=== PATIENT | male | born 1945 | race Caucasian/White ===

== ENCOUNTER 2022-01-27 10:56 | Outpatient (REF) | payer OTHER, SELFPAY ==
[2022-01-27 12:21] LABS: HCT 32.2 % (40.0-50.0); HGB 10.7 g/dL (13.5-17.5); MCH 29.6 pg (27.0-33.0); MCHC 33.2 % (32.0-36.0); MCV 89 fL (80-95); MPV 9.7 fL (8.0-11.0); Platelet Count 539 10^3/uL (130-400); RBC 3.61 10^6/uL (4.36-5.78); RDW 14.4 % (11.8-14.1); RDW-SD 44.3 fL; WBC 15.38 10^3/uL (4.4-10.8)
[2022-01-27 12:29] LABS: ALT 45 U/L (16-63); AST 17 U/L (15-37); Albumin 3.3 g/dL (3.4-5.0); Alkaline Phosphatase 569 U/L (46-116); Anion Gap 8.8 mmol/L (3-11); BUN 18 mg/dL (7-18); Bilirubin, Total 0.3 mg/dL (0.2-1.0); CO2 31.2 mmol/L (21.0-32.0); CREATININE 1.1 mg/dL (0.70-1.30); Calcium 8.8 mg/dL (8.5-10.1); Chloride 99 mmol/L (98-107); Glucose 118 mg/dL (74-106); Potassium 3.4 mmol/L (3.5-5.1); Sodium 139 mmol/L (136-145); Total Protein 6.3 g/dL (6.4-8.2)
[2022-01-27 12:36] LABS: Absolute Monocyte Count 2.31 10^3/uL (0.1-0.8); Bands % 2; Diff Comment Manual Differential; Metamyelocytes % 3; Myelocytes % 2; RBC Morphology Normal
[2022-01-27 13:29] LABS: Magnesium 1.8 mg/dL (1.8-2.4)
== END 2022-01-27 10:57 | disposition home or self-care (01) ==
LOC: LBN 10:56
PROVIDERS: PCP Family Medicine; Visit Provider Internal Medicine
DX: C79.10 Secondary malignant neoplasm of unspecified urinary organs (principal); C67.9 Malignant neoplasm of bladder, unspecified
CPT/HCPCS: 80053; 83735; 85025

== ENCOUNTER 2022-02-23 00:36 | Outpatient (RCR) | payer OTHER, SELFPAY ==
[2022-02-16 10:23] LABS: HGB 9.8 g/dL (13.5-17.5); MCH 29.9 pg (27.0-33.0); MCHC 32.7 % (32.0-36.0); MCV 92 fL (80-95); MPV 9.7 fL (8.0-11.0); RBC 3.28 10^6/uL (4.36-5.78); RDW 18.4 % (11.8-14.1)
[2022-02-16 10:39] LABS: ALT 34 U/L (16-63); AST 22 U/L (15-37); Albumin 3.4 g/dL (3.4-5.0); Alkaline Phosphatase 389 U/L (46-116); Anion Gap 9.9 mmol/L (3-11); BUN 15 mg/dL (7-18); Bilirubin, Total 0.3 mg/dL (0.2-1.0); CO2 29.1 mmol/L (21.0-32.0); CREATININE 1.2 mg/dL (0.70-1.30); Chloride 100 mmol/L (98-107); Estimated GFR 58.86 (mL/min/1.73m2); Glucose 118 mg/dL (74-106); Potassium 3.4 mmol/L (3.5-5.1); Sodium 139 mmol/L (136-145); Total Protein 6.5 g/dL (6.4-8.2)
[2022-02-16] MEDS: Normal Saline Flush 10 ML SYR IVP (10:41)
[2022-02-16 10:58] LABS: WBC 25.09 10^3/uL (4.4-10.8)
[2022-02-16 11:04] LABS: Absolute Lymphocyte Count 4.27 10^3/uL (1.2-3.4); Absolute Monocyte Count 1.51 10^3/uL (0.1-0.8); Absolute Neutrophil Count 18.32 10^3/uL (1.2-6.7); Bands % 13; Diff Comment Manual Differential
[2022-02-16 11:05] LABS: Anisocytosis 1+; Metamyelocytes % 3; Myelocytes % 1; Platelet Count 427 10^3/uL (130-400); Polychromasia Present
[2022-02-23] MEDS: Normal Saline Flush 10 ML SYR IVP (09:53)
[2022-02-23 10:03] LABS: Abs Immature Grans 0.05 10^3/uL (0.0-0.06); Absolute Basophil Count 0.04 10^3/uL (0.0-0.2); Absolute Eosinophil Count 0.01 10^3/uL (0.0-0.7); Absolute Lymphocyte Count 0.94 10^3/uL (1.2-3.4); Absolute Monocyte Count 0.26 10^3/uL (0.1-0.8); Absolute Neutrophil Count 3.73 10^3/uL (1.2-6.7); Basophils % 0.8; Eosinophils % 0.2; HCT 27.5 % (40.0-50.0); HGB 9.1 g/dL (13.5-17.5); Lymphocytes % 18.7; MCH 30.2 pg (27.0-33.0); MCHC 33.1 % (32.0-36.0); MCV 91 fL (80-95); MPV 8.9 fL (8.0-11.0); Monocytes % 5.2; Neutrophils % 74.1; Platelet Count 307 10^3/uL (130-400); RBC 3.01 10^6/uL (4.36-5.78); RDW-SD 53.2 fL; WBC 5.03 10^3/uL (4.4-10.8)
[2022-02-23 10:36] LABS: ALT 93 U/L (16-63); AST 40 U/L (15-37); Albumin 3.5 g/dL (3.4-5.0); Alkaline Phosphatase 290 U/L (46-116); Anion Gap 7.7 mmol/L (3-11); BUN 17 mg/dL (7-18); Bilirubin, Total 0.4 mg/dL (0.2-1.0); CO2 29.3 mmol/L (21.0-32.0); CREATININE 0.9 mg/dL (0.70-1.30); Calcium 8.6 mg/dL (8.5-10.1); Chloride 98 mmol/L (98-107); Glucose 112 mg/dL (74-106); Potassium 3.5 mmol/L (3.5-5.1); Sodium 135 mmol/L (136-145); Total Protein 6.6 g/dL (6.4-8.2)
== END 2022-03-04 23:59 | disposition home or self-care (01) ==
LOC: INF 00:36
PROVIDERS: PCP Family Medicine; Visit Provider Internal Medicine
DX: C79.10 Secondary malignant neoplasm of unspecified urinary organs (principal); Z45.2 Encounter for adjustment and management of vascular access device
CPT/HCPCS: 36591; 80053; 85025

== ENCOUNTER 2022-03-30 03:13 | Outpatient (RCR) | payer OTHER, SELFPAY ==
[2022-03-09] MEDS: Normal Saline Flush 10 ML SYR IVP (12:19)
[2022-03-09 12:31] LABS: Abs Immature Grans 5.62 10^3/uL (0.0-0.06); HCT 30.4 % (40.0-50.0); HGB 9.5 g/dL (13.5-17.5); MCH 30.4 pg (27.0-33.0); MCHC 31.3 % (32.0-36.0); MCV 97 fL (80-95); MPV 9.7 fL (8.0-11.0); Platelet Count 346 10^3/uL (130-400); RBC 3.12 10^6/uL (4.36-5.78); RDW 22.5 % (11.8-14.1)
[2022-03-09 12:41] LABS: WBC 26.53 10^3/uL (4.4-10.8)
[2022-03-09 12:51] LABS: ALT 23 U/L (16-63); AST 16 U/L (15-37); Albumin 3.2 g/dL (3.4-5.0); Alkaline Phosphatase 262 U/L (46-116); Anion Gap 9.2 mmol/L (3-11); BUN 15 mg/dL (7-18); Bilirubin, Total 0.3 mg/dL (0.2-1.0); CO2 25.8 mmol/L (21.0-32.0); CREATININE 1.1 mg/dL (0.70-1.30); Calcium 8.5 mg/dL (8.5-10.1); Chloride 106 mmol/L (98-107); Glucose 102 mg/dL (74-106); Potassium 3.8 mmol/L (3.5-5.1); Sodium 141 mmol/L (136-145); Total Protein 6.3 g/dL (6.4-8.2)
[2022-03-09 12:58] LABS: Absolute Eosinophil Count 1.06 10^3/uL (0.0-0.7); Absolute Lymphocyte Count 2.12 10^3/uL (1.2-3.4); Absolute Monocyte Count 3.45 10^3/uL (0.1-0.8); Absolute Neutrophil Count 18.04 10^3/uL (1.2-6.7); Bands % 8
[2022-03-09 12:59] LABS: Absolute Basophil Count 0.53 10^3/uL (0.0-0.2); Diff Comment Manual Differential; Metamyelocytes % 3; Myelocytes % 2
[2022-03-09 13:00] LABS: Anisocytosis 3+; Polychromasia Present
[2022-03-09 13:01] LABS: Poikilocytes 2+
[2022-03-16] MEDS: Normal Saline Flush 10 ML SYR IVP (12:10)
[2022-03-16 12:25] LABS: Absolute Basophil Count 0.05 10^3/uL (0.0-0.2); Absolute Eosinophil Count 0.01 10^3/uL (0.0-0.7); Absolute Lymphocyte Count 0.97 10^3/uL (1.2-3.4); Absolute Monocyte Count 0.32 10^3/uL (0.1-0.8); Absolute Neutrophil Count 4.02 10^3/uL (1.2-6.7); Basophils % 0.9; Eosinophils % 0.2; HCT 28.7 % (40.0-50.0); HGB 9.2 g/dL (13.5-17.5); Immature Grans % 1.8; Lymphocytes % 17.7; MCH 30.7 pg (27.0-33.0); MCHC 32.1 % (32.0-36.0); MCV 96 fL (80-95); MPV 8.8 fL (8.0-11.0); Monocytes % 5.9; Neutrophils % 73.5; Platelet Count 299 10^3/uL (130-400); RDW 20.2 % (11.8-14.1); RDW-SD 68.5 fL; WBC 5.47 10^3/uL (4.4-10.8)
[2022-03-16 12:48] LABS: ALT 47 U/L (16-63); AST 23 U/L (15-37); Albumin 3.5 g/dL (3.4-5.0); Alkaline Phosphatase 273 U/L (46-116); Anion Gap 8.8 mmol/L (3-11); BUN 20 mg/dL (7-18); Bilirubin, Total 0.4 mg/dL (0.2-1.0); CO2 27.2 mmol/L (21.0-32.0); CREATININE 1.1 mg/dL (0.70-1.30); Calcium 8.7 mg/dL (8.5-10.1); Chloride 102 mmol/L (98-107); Glucose 120 mg/dL (74-106); Potassium 4.2 mmol/L (3.5-5.1); Sodium 138 mmol/L (136-145); Total Protein 6.7 g/dL (6.4-8.2)
[2022-03-30] MEDS: Normal Saline Flush 10 ML SYR IVP (08:13)
[2022-03-30 08:28] LABS: Absolute Monocyte Count 2.43 10^3/uL (0.1-0.8); HCT 28.4 % (40.0-50.0); HGB 8.8 g/dL (13.5-17.5); MCH 31.4 pg (27.0-33.0); MCV 101 fL (80-95); MPV 9.8 fL (8.0-11.0); Platelet Count 279 10^3/uL (130-400); RDW 24.5 % (11.8-14.1); RDW-SD 87.4 fL; WBC 24.29 10^3/uL (4.4-10.8)
[2022-03-30 08:44] LABS: ALT 24 U/L (16-63); AST 15 U/L (15-37); Albumin 3.4 g/dL (3.4-5.0); Alkaline Phosphatase 308 U/L (46-116); Anion Gap 7.6 mmol/L (3-11); BUN 15 mg/dL (7-18); Bilirubin, Total 0.4 mg/dL (0.2-1.0); CO2 27.4 mmol/L (21.0-32.0); CREATININE 1.2 mg/dL (0.70-1.30); Calcium 8.6 mg/dL (8.5-10.1); Chloride 104 mmol/L (98-107); Estimated GFR 58.86 (mL/min/1.73m2); Glucose 137 mg/dL (74-106); Potassium 3.7 mmol/L (3.5-5.1); Sodium 139 mmol/L (136-145); Total Protein 6.8 g/dL (6.4-8.2)
[2022-03-30 08:53] LABS: Absolute Lymphocyte Count 1.46 10^3/uL (1.2-3.4); Absolute Neutrophil Count 16.76 10^3/uL (1.2-6.7); Bands % 5
[2022-03-30 08:54] LABS: Absolute Basophil Count 0.49 10^3/uL (0.0-0.2); Absolute Eosinophil Count 0.97 10^3/uL (0.0-0.7); Anisocytosis 3+; Diff Comment Manual Differential; Hypochromasia 2+; Metamyelocytes % 6; Myelocytes % 3; Polychromasia Present
== END 2022-04-04 23:59 | disposition home or self-care (01) ==
LOC: INF 03:13
PROVIDERS: PCP Family Medicine; Visit Provider Internal Medicine
DX: C79.10 Secondary malignant neoplasm of unspecified urinary organs (principal); Z45.2 Encounter for adjustment and management of vascular access device
CPT/HCPCS: 36591; 80053; 85025

== ENCOUNTER 2022-04-27 02:34 | Outpatient (RCR) | payer OTHER, SELFPAY ==
[2022-04-06] MEDS: Normal Saline Flush 10 ML SYR IVP (09:08)
[2022-04-06 09:17] LABS: Abs Immature Grans 0.09 10^3/uL (0.0-0.06); Absolute Basophil Count 0.04 10^3/uL (0.0-0.2); Absolute Eosinophil Count 0.02 10^3/uL (0.0-0.7); Absolute Lymphocyte Count 0.89 10^3/uL (1.2-3.4); Absolute Monocyte Count 0.23 10^3/uL (0.1-0.8); Absolute Neutrophil Count 3.33 10^3/uL (1.2-6.7); Basophils % 0.9; Eosinophils % 0.4; HGB 8.4 g/dL (13.5-17.5); Lymphocytes % 19.3; MCHC 31.1 % (32.0-36.0); MCV 100 fL (80-95); MPV 8.7 fL (8.0-11.0); Neutrophils % 72.4; Nucleated RBC 0.4 % (0.0-0.3); Platelet Count 245 10^3/uL (130-400); RBC 2.71 10^6/uL (4.36-5.78); RDW 21.3 % (11.8-14.1); RDW-SD 77.3 fL
[2022-04-06 09:32] LABS: ALT 42 U/L (16-63); AST 22 U/L (15-37); Albumin 3.4 g/dL (3.4-5.0); Alkaline Phosphatase 306 U/L (46-116); Anion Gap 5.3 mmol/L (3-11); BUN 15 mg/dL (7-18); Bilirubin, Total 0.4 mg/dL (0.2-1.0); CO2 27.7 mmol/L (21.0-32.0); CREATININE 1.2 mg/dL (0.70-1.30); Calcium 8.3 mg/dL (8.5-10.1); Chloride 100 mmol/L (98-107); Estimated GFR 58.86 (mL/min/1.73m2); Glucose 125 mg/dL (74-106); Potassium 4.2 mmol/L (3.5-5.1); Sodium 133 mmol/L (136-145); Total Protein 6.6 g/dL (6.4-8.2)
[2022-04-06 09:41] LABS: Anisocytosis 1+; Polychromasia Present
[2022-04-20] MEDS: Normal Saline Flush 10 ML SYR IVP (09:44)
[2022-04-20 09:54] LABS: Abs Immature Grans 3.43 10^3/uL (0.0-0.06); HCT 26.7 % (40.0-50.0); HGB 8.2 g/dL (13.5-17.5); MCH 32.3 pg (27.0-33.0); MCHC 30.7 % (32.0-36.0); MCV 105 fL (80-95); MPV 9.6 fL (8.0-11.0); Platelet Count 289 10^3/uL (130-400); RBC 2.54 10^6/uL (4.36-5.78); RDW 22.7 % (11.8-14.1); RDW-SD 86.2 fL; WBC 19.52 10^3/uL (4.4-10.8)
[2022-04-20 10:10] LABS: ALT 24 U/L (16-63); AST 20 U/L (15-37); Albumin 3.5 g/dL (3.4-5.0); Alkaline Phosphatase 302 U/L (46-116); BUN 17 mg/dL (7-18); Bilirubin, Total 0.4 mg/dL (0.2-1.0); CREATININE 1.1 mg/dL (0.70-1.30); Calcium 8.3 mg/dL (8.5-10.1); Chloride 106 mmol/L (98-107); Glucose 110 mg/dL (74-106); Sodium 142 mmol/L (136-145); Total Protein 6.9 g/dL (6.4-8.2)
[2022-04-20 10:15] LABS: Absolute Eosinophil Count 0.98 10^3/uL (0.0-0.7); Absolute Lymphocyte Count 1.95 10^3/uL (1.2-3.4); Absolute Monocyte Count 2.34 10^3/uL (0.1-0.8); Absolute Neutrophil Count 12.88 10^3/uL (1.2-6.7); Bands % 5
[2022-04-20 10:16] LABS: Metamyelocytes % 3
[2022-04-20 10:17] LABS: Anisocytosis 3+; Basophilic Stippling Present; Diff Comment Manual Differential; Hypochromasia 2+; Macrocytosis 2+; Myelocytes % 3; Polychromasia Present
[2022-04-20 10:18] LABS: Poikilocytes 2+
[2022-04-27] MEDS: Normal Saline Flush 10 ML SYR IVP (10:15)
[2022-04-27 10:28] LABS: Abs Immature Grans 0.26 10^3/uL (0.0-0.06); Absolute Basophil Count 0.05 10^3/uL (0.0-0.2); Absolute Eosinophil Count 0.04 10^3/uL (0.0-0.7); Absolute Lymphocyte Count 0.85 10^3/uL (1.2-3.4); Absolute Monocyte Count 0.42 10^3/uL (0.1-0.8); Absolute Neutrophil Count 3.73 10^3/uL (1.2-6.7); Basophils % 0.9; Eosinophils % 0.7; HCT 26.6 % (40.0-50.0); HGB 8.3 g/dL (13.5-17.5); Immature Grans % 4.9; Lymphocytes % 15.9; MCH 31.8 pg (27.0-33.0); MCHC 31.2 % (32.0-36.0); MCV 102 fL (80-95); MPV 8.8 fL (8.0-11.0); Monocytes % 7.9; Neutrophils % 69.7; Nucleated RBC 0.9 % (0.0-0.3); Platelet Count 236 10^3/uL (130-400); RBC 2.61 10^6/uL (4.36-5.78); RDW 19.1 % (11.8-14.1); RDW-SD 71.1 fL; WBC 5.35 10^3/uL (4.4-10.8)
[2022-04-27 10:43] LABS: ALT 34 U/L (16-63); AST 19 U/L (15-37); Albumin 3.5 g/dL (3.4-5.0); Alkaline Phosphatase 329 U/L (46-116); Anion Gap 8.2 mmol/L (3-11); BUN 16 mg/dL (7-18); Bilirubin, Total 0.4 mg/dL (0.2-1.0); CO2 25.8 mmol/L (21.0-32.0); CREATININE 1.1 mg/dL (0.70-1.30); Calcium 8.5 mg/dL (8.5-10.1); Chloride 104 mmol/L (98-107); Glucose 108 mg/dL (74-106); Magnesium 1.6 mg/dL (1.8-2.4); Potassium 4.4 mmol/L (3.5-5.1); Sodium 138 mmol/L (136-145); Total Protein 6.8 g/dL (6.4-8.2)
== END 2022-05-05 23:59 | disposition home or self-care (01) ==
LOC: INF 02:34
PROVIDERS: PCP Family Medicine; Visit Provider Internal Medicine
DX: C79.10 Secondary malignant neoplasm of unspecified urinary organs (principal); C67.9 Malignant neoplasm of bladder, unspecified; Z45.2 Encounter for adjustment and management of vascular access device
CPT/HCPCS: 36591; 80053; 86850; 86900; 86901; 83735; 85025

== ENCOUNTER 2022-05-11 01:53 | Outpatient (RCR) | payer OTHER, SELFPAY ==
[2022-05-11] MEDS: Normal Saline Flush 10 ML SYR IVP (08:26)
[2022-05-11 08:32] LABS: HCT 29.2 % (40.0-50.0); MCH 32.3 pg (27.0-33.0); MCHC 30.8 % (32.0-36.0); MCV 105 fL (80-95); MPV 9.8 fL (8.0-11.0); Platelet Count 240 10^3/uL (130-400); RBC 2.79 10^6/uL (4.36-5.78); RDW 19.7 % (11.8-14.1); RDW-SD 74.5 fL
[2022-05-11 08:45] LABS: ALT 21 U/L (16-63); AST 20 U/L (15-37); Albumin 3.5 g/dL (3.4-5.0); Alkaline Phosphatase 424 U/L (46-116); Anion Gap 9.9 mmol/L (3-11); BUN 16 mg/dL (7-18); Bilirubin, Total 0.5 mg/dL (0.2-1.0); CO2 27.1 mmol/L (21.0-32.0); CREATININE 1.2 mg/dL (0.70-1.30); Calcium 8.8 mg/dL (8.5-10.1); Chloride 103 mmol/L (98-107); Estimated GFR 62.67 (mL/min/1.73m2); Glucose 130 mg/dL (74-106); Sodium 140 mmol/L (136-145); Total Protein 7.1 g/dL (6.4-8.2)
[2022-05-11 08:59] LABS: WBC 27.61 10^3/uL (4.4-10.8)
[2022-05-11 09:00] LABS: Absolute Lymphocyte Count 2.21 10^3/uL (1.2-3.4); Absolute Monocyte Count 2.21 10^3/uL (0.1-0.8); Absolute Neutrophil Count 20.16 10^3/uL (1.2-6.7); Bands % 13; Metamyelocytes % 5; Myelocytes % 4; Promyelocytes % 2
[2022-05-11 09:01] LABS: Diff Comment Manual Differential; Polychromasia Present
[2022-05-11 10:26] LABS: FREE T4 1.15 ng/dL (0.76-1.46); TSH 1.02 uIU/mL (0.36-3.74)
== END 2022-06-04 23:59 | disposition home or self-care (01) ==
LOC: INF 01:53
PROVIDERS: Nurse Practitioner Family; PCP Family Medicine; Visit Provider Internal Medicine
DX: C67.9 Malignant neoplasm of bladder, unspecified (principal); R94.6 Abnormal results of thyroid function studies; Z45.2 Encounter for adjustment and management of vascular access device
CPT/HCPCS: 36591; 80053; 84439; 84443; 85025

== ENCOUNTER 2022-06-29 02:14 | Outpatient (RCR) | payer OTHER, SELFPAY ==
[2022-06-08] MEDS: Normal Saline Flush 10 ML SYR IVP (09:13)
[2022-06-08 09:36] LABS: Abs Immature Grans 0.91 10^3/uL (0.0-0.06); HCT 30.2 % (40.0-50.0); HGB 9.4 g/dL (13.5-17.5); MCH 29.6 pg (27.0-33.0); MCHC 31.1 % (32.0-36.0); MCV 95 fL (80-95); MPV 9.5 fL (8.0-11.0); Platelet Count 151 10^3/uL (130-400); RBC 3.18 10^6/uL (4.36-5.78); RDW 17.6 % (11.8-14.1); RDW-SD 60.4 fL; WBC 7.46 10^3/uL (4.4-10.8)
[2022-06-08 10:01] LABS: Absolute Basophil Count 0.07 10^3/uL (0.0-0.2); Absolute Eosinophil Count 0.07 10^3/uL (0.0-0.7); Absolute Lymphocyte Count 1.87 10^3/uL (1.2-3.4); Absolute Monocyte Count 0.22 10^3/uL (0.1-0.8); Atypical Lymphocytes % 2; Bands % 0; Diff Comment Manual Differential; Metamyelocytes % 3; Myelocytes % 4; RBC Morphology Normal
[2022-06-08 10:03] LABS: ALT 15 U/L (16-63); AST 13 U/L (15-37); Albumin 3.2 g/dL (3.4-5.0); Alkaline Phosphatase 531 U/L (46-116); Anion Gap 8.6 mmol/L (3-11); BUN 15 mg/dL (7-18); Bilirubin, Total 0.4 mg/dL (0.2-1.0); CO2 26.4 mmol/L (21.0-32.0); CREATININE 1.1 mg/dL (0.70-1.30); Calcium 8.8 mg/dL (8.5-10.1); Chloride 101 mmol/L (98-107); Estimated GFR 69.57 (mL/min/1.73m2); FREE T4 1.05 ng/dL (0.76-1.46); Glucose 146 mg/dL (74-106); Potassium 3.8 mmol/L (3.5-5.1); Sodium 136 mmol/L (136-145); TSH 2.03 uIU/mL (0.36-3.74); Total Protein 6.9 g/dL (6.4-8.2)
[2022-06-29] MEDS: Normal Saline Flush 10 ML SYR IVP (08:31)
[2022-06-29 08:33] LABS: HCT 30.7 % (40.0-50.0); HGB 9.6 g/dL (13.5-17.5); MCHC 31.3 % (32.0-36.0); MCV 93 fL (80-95); Platelet Count 135 10^3/uL (130-400); RBC 3.31 10^6/uL (4.36-5.78); RDW 18.1 % (11.8-14.1); RDW-SD 61.6 fL; WBC 7.14 10^3/uL (4.4-10.8)
[2022-06-29 08:56] LABS: Absolute Eosinophil Count 0.07 10^3/uL (0.0-0.7); Absolute Lymphocyte Count 1.14 10^3/uL (1.2-3.4); Absolute Monocyte Count 0.64 10^3/uL (0.1-0.8); Absolute Neutrophil Count 4.86 10^3/uL (1.2-6.7); Bands % 6
[2022-06-29 08:57] LABS: Anisocytosis 1+; Diff Comment Manual Differential; Metamyelocytes % 3; Myelocytes % 3; Polychromasia Present
[2022-06-29 08:59] LABS: ALT 14 U/L (16-63); AST 11 U/L (15-37); Albumin 3.1 g/dL (3.4-5.0); Alkaline Phosphatase 708 U/L (46-116); Anion Gap 9.7 mmol/L (3-11); BUN 17 mg/dL (7-18); Bilirubin, Total 0.4 mg/dL (0.2-1.0); CO2 26.3 mmol/L (21.0-32.0); CREATININE 1.1 mg/dL (0.70-1.30); Calcium 8.4 mg/dL (8.5-10.1); Chloride 101 mmol/L (98-107); Estimated GFR 69.57 (mL/min/1.73m2); FREE T4 1.16 ng/dL (0.76-1.46); Glucose 134 mg/dL (74-106); Magnesium 1.6 mg/dL (1.8-2.4); Potassium 3.9 mmol/L (3.5-5.1); Sodium 137 mmol/L (136-145); TSH 2.91 uIU/mL (0.36-3.74); Total Protein 6.3 g/dL (6.4-8.2)
== END 2022-07-05 23:59 | disposition home or self-care (01) ==
LOC: INF 02:14
PROVIDERS: PCP Family Medicine; Visit Provider Internal Medicine
DX: R94.6 Abnormal results of thyroid function studies (principal); Z45.2 Encounter for adjustment and management of vascular access device
CPT/HCPCS: 36591; 80053; 83735; 84439; 84443; 85025

== ENCOUNTER 2022-08-03 03:24 | Outpatient (RCR) | payer OTHER, SELFPAY ==
[2022-07-06] MEDS: Normal Saline Flush 10 ML SYR IVP (09:14)
[2022-07-06 09:26] LABS: Abs Immature Grans 0.07 10^3/uL (0.0-0.06); Absolute Basophil Count 0.01 10^3/uL (0.0-0.2); Absolute Lymphocyte Count 0.45 10^3/uL (1.2-3.4); Absolute Monocyte Count 0.11 10^3/uL (0.1-0.8); Absolute Neutrophil Count 1.75 10^3/uL (1.2-6.7); Basophils % 0.4; HCT 28.2 % (40.0-50.0); HGB 8.9 g/dL (13.5-17.5); Immature Grans % 2.9; Lymphocytes % 18.8; MCH 28.7 pg (27.0-33.0); MCHC 31.6 % (32.0-36.0); MCV 91 fL (80-95); MPV 9.5 fL (8.0-11.0); Monocytes % 4.6; Neutrophils % 73.3; RDW 17.6 % (11.8-14.1); RDW-SD 58.4 fL; WBC 2.39 10^3/uL (4.4-10.8)
[2022-07-06 09:41] LABS: ALT 36 U/L (16-63); AST 22 U/L (15-37); Albumin 2.7 g/dL (3.4-5.0); Alkaline Phosphatase 600 U/L (46-116); Anion Gap 6.8 mmol/L (3-11); BUN 15 mg/dL (7-18); Bilirubin, Total 0.4 mg/dL (0.2-1.0); CO2 28.2 mmol/L (21.0-32.0); CREATININE 1.1 mg/dL (0.70-1.30); Calcium 8.1 mg/dL (8.5-10.1); Chloride 102 mmol/L (98-107); Estimated GFR 69.57 (mL/min/1.73m2); Glucose 136 mg/dL (74-106); Potassium 4.2 mmol/L (3.5-5.1); Sodium 137 mmol/L (136-145); Total Protein 6.6 g/dL (6.4-8.2)
[2022-07-06 09:46] LABS: Diff Comment Agrees w/ Instrument; Platelet Count 62 10^3/uL (130-400); RBC Morphology Normal
[2022-07-13] MEDS: Normal Saline Flush 10 ML SYR IVP (09:24)
[2022-07-13 09:31] LABS: HCT 26.3 % (40.0-50.0); HGB 8.1 g/dL (13.5-17.5); MCH 28.1 pg (27.0-33.0); MCHC 30.8 % (32.0-36.0); MCV 91 fL (80-95); MPV 10.5 fL (8.0-11.0); Platelet Count 106 10^3/uL (130-400); RBC 2.88 10^6/uL (4.36-5.78); RDW 17.8 % (11.8-14.1); RDW-SD 58.5 fL; WBC 3.17 10^3/uL (4.4-10.8)
[2022-07-13 09:47] LABS: Absolute Lymphocyte Count 0.86 10^3/uL (1.2-3.4); Absolute Monocyte Count 0.22 10^3/uL (0.1-0.8); Anisocytosis 2+; Bands % 1; Diff Comment Manual Differential; Polychromasia Present
[2022-07-13 09:48] LABS: Metamyelocytes % 2; Myelocytes % 1
[2022-07-13 09:56] LABS: ALT 25 U/L (16-63); AST 17 U/L (15-37); Albumin 2.8 g/dL (3.4-5.0); Alkaline Phosphatase 523 U/L (46-116); Anion Gap 10.5 mmol/L (3-11); BUN 20 mg/dL (7-18); Bilirubin, Total 0.4 mg/dL (0.2-1.0); CO2 26.5 mmol/L (21.0-32.0); CREATININE 1.1 mg/dL (0.70-1.30); Calcium 8.1 mg/dL (8.5-10.1); Chloride 102 mmol/L (98-107); Estimated GFR 69.57 (mL/min/1.73m2); FREE T4 0.94 ng/dL (0.76-1.46); Glucose 127 mg/dL (74-106); Potassium 4.1 mmol/L (3.5-5.1); Sodium 139 mmol/L (136-145); TSH 4.36 uIU/mL (0.36-3.74); Total Protein 6.7 g/dL (6.4-8.2)
[2022-07-15 10:36] VITALS: BP 108/69; PULSE 83; RESP 18; TEMP 36.4; O2SAT 100
[2022-07-15] MEDS: Heparin 500 UNITS/5 ML SYRINGE IV (10:39)
[2022-07-15] MEDS: Normal Saline Flush 10 ML SYR IVP (10:39)
[2022-07-15 10:53] VITALS: BP 95/66; PULSE 44; RESP 18; TEMP 36.6; O2SAT 99
[2022-07-15 11:11] VITALS: BP 99/57; PULSE 73; RESP 18; TEMP 36.6; O2SAT 95
[2022-07-15 11:40] VITALS: BP 105/62; PULSE 76; RESP 18; TEMP 36.4; O2SAT 100
[2022-07-15 12:10] VITALS: BP 122/73; PULSE 76; RESP 18; TEMP 36.4; O2SAT 99
[2022-07-27] MEDS: Normal Saline Flush 10 ML SYR IVP (09:22)
[2022-07-27 09:39] LABS: HCT 25.7 % (40.0-50.0); MCH 28.9 pg (27.0-33.0); MCHC 31.1 % (32.0-36.0); MCV 93 fL (80-95); MPV 9.7 fL (8.0-11.0); Platelet Count 109 10^3/uL (130-400); RBC 2.77 10^6/uL (4.36-5.78); RDW 19.6 % (11.8-14.1); RDW-SD 62.9 fL; WBC 12.48 10^3/uL (4.4-10.8)
[2022-07-27 10:09] LABS: ALT 13 U/L (16-63); AST 18 U/L (15-37); Absolute Monocyte Count 1.12 10^3/uL (0.1-0.8); Absolute Neutrophil Count 9.11 10^3/uL (1.2-6.7); Albumin 2.6 g/dL (3.4-5.0); Alkaline Phosphatase 415 U/L (46-116); Anion Gap 7.3 mmol/L (3-11); Atypical Lymphocytes % 1; BUN 18 mg/dL (7-18); Bands % 11; Bilirubin, Total 0.3 mg/dL (0.2-1.0); CO2 26.7 mmol/L (21.0-32.0); CREATININE 0.9 mg/dL (0.70-1.30); Calcium 7.8 mg/dL (8.5-10.1); Chloride 102 mmol/L (98-107); Estimated GFR 88.51 (mL/min/1.73m2); FREE T4 0.93 ng/dL (0.76-1.46); Glucose 115 mg/dL (74-106); Magnesium 1.5 mg/dL (1.8-2.4); Metamyelocytes % 5; Myelocytes % 1; Potassium 3.6 mmol/L (3.5-5.1); Sodium 136 mmol/L (136-145); TSH 3.67 uIU/mL (0.36-3.74); Total Protein 6.2 g/dL (6.4-8.2)
[2022-07-27 10:10] LABS: Anisocytosis 2+; Diff Comment Manual Differential; Polychromasia Present
[2022-07-28] MEDS: Normal Saline Flush 10 ML SYR IVP (10:17)
[2022-07-28] MEDS: Heparin 500 UNITS/5 ML SYRINGE IV (10:17)
[2022-07-28 10:28] VITALS: BP 112/70; PULSE 64; RESP 18; TEMP 35.6; O2SAT 98
[2022-07-28 10:45] VITALS: BP 113/60; PULSE 62; RESP 18; TEMP 35.4; O2SAT 97
[2022-07-28 11:00] VITALS: BP 107/68; PULSE 59; RESP 17; TEMP 35.8; O2SAT 98
[2022-07-28 11:30] VITALS: BP 104/66; PULSE 64; RESP 16; TEMP 35.6; O2SAT 98
[2022-07-28 12:27] VITALS: BP 114/68; PULSE 66; RESP 17; TEMP 35.5; O2SAT 99
[2022-08-03] MEDS: Normal Saline Flush 10 ML SYR IVP (09:15)
[2022-08-03 09:25] LABS: HCT 25.8 % (40.0-50.0); HGB 8.1 g/dL (13.5-17.5); MCH 28.6 pg (27.0-33.0); MCHC 31.4 % (32.0-36.0); MCV 91 fL (80-95); MPV 9.8 fL (8.0-11.0); RBC 2.83 10^6/uL (4.36-5.78); RDW 17.9 % (11.8-14.1); RDW-SD 58.5 fL; WBC 5.14 10^3/uL (4.4-10.8)
[2022-08-03 09:38] LABS: ALT 29 U/L (16-63); AST 21 U/L (15-37); Albumin 2.9 g/dL (3.4-5.0); Alkaline Phosphatase 394 U/L (46-116); Anion Gap 7.5 mmol/L (3-11); BUN 16 mg/dL (7-18); Bilirubin, Total 0.4 mg/dL (0.2-1.0); CO2 28.5 mmol/L (21.0-32.0); CREATININE 1.1 mg/dL (0.70-1.30); Calcium 8.2 mg/dL (8.5-10.1); Chloride 98 mmol/L (98-107); Estimated GFR 69.57 (mL/min/1.73m2); Glucose 118 mg/dL (74-106); Magnesium 1.6 mg/dL (1.8-2.4); Potassium 3.9 mmol/L (3.5-5.1); Sodium 134 mmol/L (136-145); Total Protein 6.4 g/dL (6.4-8.2)
[2022-08-03 09:50] LABS: Absolute Lymphocyte Count 0.98 10^3/uL (1.2-3.4); Absolute Monocyte Count 0.15 10^3/uL (0.1-0.8); Absolute Neutrophil Count 4.01 10^3/uL (1.2-6.7); Bands % 2; Diff Comment Manual Differential; Platelet Count 87 10^3/uL (130-400); Polychromasia Present
== END 2022-08-04 23:59 | disposition home or self-care (01) ==
LOC: INF 03:24
PROVIDERS: Nurse Practitioner Family; PCP Family Medicine; Visit Provider Internal Medicine
DX: C67.9 Malignant neoplasm of bladder, unspecified (principal); R94.6 Abnormal results of thyroid function studies; Z45.2 Encounter for adjustment and management of vascular access device; C79.10 Secondary malignant neoplasm of unspecified urinary organs
CPT/HCPCS: 36430; 36591; 80053; 86850; 86900; 86901; 86920; 83735; 84439; 84443; 85025; P9016